=== PATIENT | female | born 1950 | race Caucasian/White ===

== ENCOUNTER 2020-08-21 07:55 | Outpatient (CLI) | payer MEDICARE, SELFPAY ==
--- NOTE | 2020-08-21 08:16 | MM_ITS ---
WS: [id number] BILATERAL DIGITAL SCREENING MAMMOGRAPHY WITH CAD CLINICAL INFORMATION: SCREENING HISTORY: Screening mammogram. No current complaints. COMPARISON: TECHNIQUE: Bilateral CC and MLO views. FINDINGS: Scattered fibroglandular densities bilaterally. No suspicious focal mass, asymmetry, calcifications, or architectural distortion. No evidence of malignancy. Punctate calcification right breast. MM/[place] [id number] IMPRESSION: BI-RADS: 2-Benign FOLLOW UP: 1 Year Follow-up Recommend return to annual screening mammography.
--- NOTE | 2020-08-21 13:46 | XR_ITS ---
WS: [id number] SCREENING DEXA SCAN [employer] CLINICAL INFORMATION: POST MENOPAUSAL COMPARISON: None. FINDINGS: The L1-L4 bone mineral density measures 1.407 g/cm2. This corresponds to a T score score of 1.9 and Z score of 2.4. Left femoral neck bone mineral density measures 0.875 g/cm2. This corresponds to a T score of -1.1 an d Z score of -0.5. Right femoral neck bone mineral density measures 0.908 g/cm2. This corresponds to a T score -0.8of an d Z score of -0.3. Mean femoral neck bone mineral density measures 0.892 g/cm2. This corresponds to a T score of -0.9 an d Z score of -0.4. XR/XR DEXA axial skeleton* [id number] IMPRESSION: Osteopenia in the femoral necks. Normal bone mineralization lumbar spine. Patient's FRAX calculated 10 year probability for major osteoporotic fracture i s 11.9 % and osteoporotic hip fracture is 0.8%.
== END 2020-08-21 07:56 | disposition home or self-care (01) ==
PROVIDERS: PCP Family Medicine; Visit Provider Family Medicine
DX: Z12.31 Encounter for screening mammogram for malignant neoplasm of breast (principal); Z78.0 Asymptomatic menopausal state; M85.88 Other specified disorders of bone density and structure, other site
CPT/HCPCS: 77067; 77080

== ENCOUNTER → 2022-06-25 10:32 | Outpatient (BNVA) | payer MEDICARE, SELFPAY | PROVIDERS: PCP Family Medicine; Visit Provider Family Medicine | DX: E04.1 Nontoxic single thyroid nodule (principal); I10 Essential (primary) hypertension | CPT/HCPCS: 80053; 80061; 84439; 84443; 85025 ==

== ENCOUNTER → 2023-06-30 09:22 | Outpatient (BNVA) | payer MEDICARE, SELFPAY | PROVIDERS: PCP Family Medicine; Visit Provider Family Medicine | DX: E04.1 Nontoxic single thyroid nodule (principal); E78.2 Mixed hyperlipidemia; I10 Essential (primary) hypertension | CPT/HCPCS: 80053; 80061; 84439; 84443 ==

== ENCOUNTER → 2024-06-26 10:15 | Outpatient (BNVA) | payer MEDICARE, SELFPAY | PROVIDERS: PCP Family Medicine; Visit Provider Family Medicine | DX: I10 Essential (primary) hypertension (principal); E78.2 Mixed hyperlipidemia; E04.1 Nontoxic single thyroid nodule; E55.9 Vitamin D deficiency, unspecified | CPT/HCPCS: 80053; 80061; 82306; 84439; 84443 ==

== ENCOUNTER → 2025-06-12 09:15 | Outpatient (BNVA) | payer MEDICARE, SELFPAY | PROVIDERS: PCP Family Medicine; Visit Provider Family Medicine | DX: I10 Essential (primary) hypertension (principal); E78.2 Mixed hyperlipidemia; R79.89 Other specified abnormal findings of blood chemistry; E04.1 Nontoxic single thyroid nodule; E83.42 Hypomagnesemia | CPT/HCPCS: 80053; 80061; 82306; 82607; 82746; 83036; 83735; 84439; 84443; 85025 ==

== ENCOUNTER → 2025-08-02 09:41 | Outpatient (BNVA) | payer MEDICARE, SELFPAY | PROVIDERS: PCP Family Medicine; Visit Provider Dermatology | DX: D22.5 Melanocytic nevi of trunk (principal) | CPT/HCPCS: 17000; 99203 ==